=== PATIENT | male | born 1990 | race Caucasian/White ===

== ENCOUNTER 2017-01-22 23:32 | Emergency (ER) | payer SELFPAY ==
[2017-01-22] MEDS ORDERED: Sodium Chloride 0.9% 2.5 ML Syringe FLUSH PRN (23:38)
[2017-01-22] MEDS ORDERED: Sodium Chloride 0.9% 1,000 ML IV ONE (23:38)
[2017-01-22] MEDS ORDERED: Sodium Chloride 0.9% 10 ML Syringe FLUSH PRN (23:38)
--- NOTE | 2017-01-22 23:49 | EDM.PDOC ---
ED HPI GENERAL MEDICAL PROBLEM - General Stated Complaint: AMBULANCE Time Seen by Provider: 01/22/17 23:34 - History of Present Illness INITIAL COMMENTS - FREE TEXT/NARRATIVE: HISTORY AND PHYSICAL: History of present illness: Patient's 27-year-old white male who presents with altered mental status and presumptive overdose who arrived by paramedics and police agitated combative and profoundly altered blood sugar in the field was 120 drug paraphernalia and an unknown/unidentified white substance in the hotel room patient was semi- responsive when police forced entry to his room Review of systems: As per history of present illness and below otherwise all systems reviewed and negative. Past medical history: As per history of present illness and as reviewed below otherwise noncontributory. Surgical history: As per history of present illness and as reviewed below otherwise noncontributory. Social history: No reported history of drug or alcohol abuse. Family history: As per history of present illness and as reviewed below otherwise noncontributory. Physical exam: HEENT: Atraumatic, normocephalic, dilated pupils reactive sluggish, negative for conjunctival pallor or scleral icterus, mucous membranes moist, throat clear , nontender, trachea midline. Lungs: Coarse bilaterally, breath sounds equal bilaterally, chest nontender. Heart: S1S2, regular, tachycardic Abdomen: Soft, nondistended, nontender. Negative for masses Pelvis: Stable nontender. Genitourinary: Deferred. Rectal: Deferred. Extremities: Atraumatic, negative for cords or calf pain. Neurovascular unremarkable. Neuro: Awake combative altered does not follow commands fighting aggressively Diagnostics: CBC CMP troponin PT/INR ammonia UA urine drug screen EtOH aspirin Tylenol level EKG chest x-ray Therapeutics: Patient was intubated with an 8.0 ET tube by rapid sequence intubation breath sounds were equal bilaterally status post chest x-ray pending Propofol drip initiated Impression: #1 altered mental status #2 presumptive overdose Definitive disposition and diagnosis as appropriate pending reevaluation and review of above. - Related Data Allergies Allergy/AdvReac Type Severity Reaction Status Date / Time Penicillins Allergy Hives Verified 05/29/14 21:47 Home Meds: Home Meds . [No Known Home Meds] 05/29/14 [History] Social & Family History - Tobacco Use Smoking Status *Q: Never Smoker Second Hand Smoke Exposure: No - Alcohol Use Days Per Week of Alcohol Use: 0 - Recreational Drug Use Recreational Drug Use: No ED ROS GENERAL - Review of Systems Review Of Systems: ROS reveals no pertinent complaints other than HPI. ED EXAM, GENERAL - Physical Exam Exam: See Below (See dictation) Course - Orders/Labs/Meds Orders: Active Orders 24 hr Category Date Time Status EKG Documentation Completion [RC] STAT Care 01/22/17 23:37 Active Pulse Oximetry [RC] ASDIRECTED Care 01/22/17 23:37 Active Chest 1V Frontal [CR] Stat Exams 01/22/17 23:38 Ordered ACETAMINOPHEN [CHEM] Stat Lab 01/22/17 23:37 Ordered AMMONIA VENOUS [CHEM] Stat Lab 01/22/17 23:37 Ordered CBC WITH AUTO DIFF [HEME] Stat Lab 01/22/17 23:37 Ordered COMPREHENSIVE METABOLIC PN,CMP [CHEM] Stat Lab 01/22/17 23:37 Ordered CULTURE BLOOD [BC] Stat Lab 01/22/17 23:38 Ordered CULTURE BLOOD [BC] Stat Lab 01/22/17 23:38 Ordered CULTURE URINE [RM] Stat Lab 01/22/17 23:37 Uncollected DRUG SCREEN, URINE [URCHEM] Stat Lab 01/22/17 23:37 Uncollected ETHANOL BLOOD MEDICAL [CHEM] Stat Lab 01/22/17 23:37 Ordered INR,PT,PROTHROMBIN TIME [COAG] Stat Lab 01/22/17 23:37 Ordered LACTIC ACID,WHOLE BLOOD [BG] Stat Lab 01/22/17 23:37 Ordered LIPASE [CHEM] Stat Lab 01/22/17 23:37 Ordered SALICYLATE [CHEM] Stat Lab 01/22/17 23:37 Ordered TROPONIN I [CHEM] Stat Lab 01/22/17 23:37 Ordered UA W/MICROSCOPIC [URIN] Stat Lab 01/22/17 23:37 Uncollected Sodium Chloride 0.9% [Normal Saline] 1,000 ml Med 01/22/17 23:38 Active IV STAT Sodium Chloride 0.9% [Saline Flush] Med 01/22/17 23:38 Active 10 ml FLUSH ASDIRECTED PRN Sodium Chloride 0.9% [Saline Flush] Med 01/22/17 23:38 Active 2.5 ml FLUSH ASDIRECTED PRN Blood Culture x2 Reflex Set [OM.PC] Stat Oth 01/22/17 23:37 Ordered Nasogastric Orogastric Tube Insertion [OM.PC] Stat Oth 01/22/17 23:37 Ordered Saline Lock Insert [OM.PC] Stat Oth 01/22/17 23:37 Ordered Medication Orders Sodium Chloride (Normal Saline) 1,000 mls @ 999 mls/hr IV STAT ONE Stop: 01/23/17 00:38 Sodium Chloride (Saline Flush) 10 ml FLUSH ASDIRECTED PRN PRN Reason: Keep Vein Open Sodium Chloride (Saline Flush) 2.5 ml FLUSH ASDIRECTED PRN PRN Reason: Keep Vein Open Meds: Medications Generic Name Dose Route Start Last Admin Trade Name Freq PRN Reason Stop Dose Admin Sodium Chloride 1,000 mls @ 999 mls/hr 01/22/17 23:38 Normal Saline IV 01/23/17 00:38 STAT ONE Sodium Chloride 10 ml 01/22/17 23:38 Saline Flush FLUSH ASDIRECTED PRN Keep Vein Open Sodium Chloride 2.5 ml 01/22/17 23:38 Saline Flush FLUSH ASDIRECTED PRN Keep Vein Open Departure - Departure Time of Disposition: 23:50 Disposition: DC/Tfer to [facility] Condition: Undetermined Clinical Impression: Altered mental status - Discharge Information - My Orders Last 24 Hours: My Active Orders 01/22/17 23:37 EKG Documentation Completion [RC] STAT Pulse Oximetry [RC] ASDIRECTED ACETAMINOPHEN [CHEM] Stat AMMONIA VENOUS [CHEM] Stat CBC WITH AUTO DIFF [HEME] Stat COMPREHENSIVE METABOLIC PN,CMP [CHEM] Stat CULTURE URINE [RM] Stat DRUG SCREEN, URINE [URCHEM] Stat ETHANOL BLOOD MEDICAL [CHEM] Stat INR,PT,PROTHROMBIN TIME [COAG] Stat LACTIC ACID,WHOLE BLOOD [BG] Stat LIPASE [CHEM] Stat SALICYLATE [CHEM] Stat TROPONIN I [CHEM] Stat UA W/MICROSCOPIC [URIN] Stat Blood Culture x2 Reflex Set [OM.PC] Stat Nasogastric Orogastric Tube Insertion [OM.PC] Stat Saline Lock Insert [OM.PC] Stat 01/22/17 23:38 Chest 1V Frontal [CR] Stat CULTURE BLOOD [BC] Stat CULTURE BLOOD [BC] Stat Sodium Chloride 0.9% [Normal Saline] 1,000 ml IV STAT Sodium Chloride 0.9% [Saline Flush] 10 ml FLUSH ASDIRECTED PRN Sodium Chloride 0.9% [Saline Flush] 2.5 ml FLUSH ASDIRECTED PRN - Assessment/Plan Last 24 Hours: My Active Orders 01/22/17 23:37 EKG Documentation Completion [RC] STAT Pulse Oximetry [RC] ASDIRECTED ACETAMINOPHEN [CHEM] Stat AMMONIA VENOUS [CHEM] Stat CBC WITH AUTO DIFF [HEME] Stat COMPREHENSIVE METABOLIC PN,CMP [CHEM] Stat CULTURE URINE [RM] Stat DRUG SCREEN, URINE [URCHEM] Stat ETHANOL BLOOD MEDICAL [CHEM] Stat INR,PT,PROTHROMBIN TIME [COAG] Stat LACTIC ACID,WHOLE BLOOD [BG] Stat LIPASE [CHEM] Stat SALICYLATE [CHEM] Stat TROPONIN I [CHEM] Stat UA W/MICROSCOPIC [URIN] Stat Blood Culture x2 Reflex Set [OM.PC] Stat Nasogastric Orogastric Tube Insertion [OM.PC] Stat Saline Lock Insert [OM.PC] Stat 01/22/17 23:38 Chest 1V Frontal [CR] Stat CULTURE BLOOD [BC] Stat CULTURE BLOOD [BC] Stat Sodium Chloride 0.9% [Normal Saline] 1,000 ml IV STAT Sodium Chloride 0.9% [Saline Flush] 10 ml FLUSH ASDIRECTED PRN Sodium Chloride 0.9% [Saline Flush] 2.5 ml FLUSH ASDIRECTED PRN
[2017-01-23 01:02] LABS: ACETAMINOPHEN < 3.0 ug/mL; CHLORIDE,CL 111 mmol/L (98-110); SODIUM,NA 146 mmol/L (136-146)
[2017-01-23 04:01] VITALS: BP 111/51
[2017-01-23] MEDS ORDERED: Etomidate 2 MG/ML 20 ML SDV IVPUSH ONE (04:42)
[2017-01-23] MEDS ORDERED: Succinylcholine 200 MG/10 ML MDV IV STA (04:43)
[2017-01-23] MEDS ORDERED: Rocuronium 50 MG/5 ML Vial IVPUSH ONE (04:44)
--- NOTE | 2017-01-23 15:23 | CR ---
EXAM DATE: 01/22/17 PATIENT'S AGE: 27 Patient: LAURE HINES Facility: [place], [place] Site . Site : 1990 Study: XRay Chest [id number] 11:54:19 PM Ordering Physician: Christina Lux Final Report: INDICATION: Found unresponsive, status post intubation TECHNIQUE: Chest 1 view. Limb 40 8 p.m. COMPARISON: 05/29/2014 FINDINGS: Lines and tubes: The ET tube is in place with the tip at the ann and should be retracted at least 3 centimeters. Cardiovascular and mediastinum: Heart size and vasculature are normal in caliber and appearance. Mediastinum is within normal limits. Lungs and pleural space: Lungs are clear. No sign of infiltrate or mass. No sign of pleural effusion. No pneumothorax. Bones and soft tissues: No significant findings. IMPRESSION: The ET tube is in place the tip at the ann to be retracted at least 3 centimeters. Dictated by Ronak Vasquez MD @ 01/22/2017 11:59:45 PM Dictated by: Ronak Vasquez MD @ 01/22/2017 23:59:53 ----- ADDENDUM ----- Confirmation of report received on 01/23/2017 at 12:04 a.m. with [employer]: Dictated by Ronak Vasquez MD @ Jan 23 2017 12:14AM (Electronic Signature) Report Signed by Proxy. SELIN
--- NOTE | 2017-01-23 15:24 | CR ---
EXAM DATE: 01/22/17 PATIENT'S AGE: 27 Patient: LAURE HINES Facility: [place], [place] Site . Site : 1990 Study: XRay Chest [id number] 12:18:15 AM Ordering Physician: Christina Lux Final Report: INDICATION: ET tube repositioning TECHNIQUE: Chest 1 view. 12:12 a.m. COMPARISON: 01/22/2017 at 11:48 p.m. FINDINGS: Lines and tubes: The ET tube is in place with the tip 4.0 centimeters from the ann. Cardiovascular and mediastinum: Heart size and vasculature are normal in caliber and appearance. Mediastinum is within normal limits. Lungs and pleural space: Lungs are clear. No sign of infiltrate or mass. No sign of pleural effusion. No pneumothorax. Bones and soft tissues: No significant findings. IMPRESSION: The ET tube is in place with the tip 4.0 centimeters from the ann. Dictated by Ronak Vasquez MD @ 01/23/2017 12:24:46 AM Dictated by: Ronak Vasquez MD @ 01/23/2017 00:26:19 (Electronic Signature) Report Signed by Proxy. [facility]AK[facility] HEALTH SYSTEMJohnathan
== END 2017-01-23 00:40 ==
LOC: MW.ED 23:32
DX: R41.82 Altered mental status, unspecified (principal); Z88.0 Allergy status to penicillin
CPT/HCPCS: 31500; 36415; 36600; 71010; 80053; 80305; 81001; 82140; 82803; 83605; 83690; 84484; 85025; 85610; 87040; 87086; 93005; 96361; 96374; 96375; 99291; G0480; J0330; J7040; 99285